=== PATIENT | female | born 1985 | race Caucasian/White ===

== ENCOUNTER 2017-05-24 09:33 | Emergency (ER) | payer MEDICAID, OTHER ==
[~2017-05-24] VITALS: Ht 165.1 cm; Wt 57.6 kg
[2017-05-24] MEDS ORDERED: BENZONATATE 100 MG CAPSULE PO ONE (10:15)
[2017-05-24] MEDS ORDERED: BENZONATATE 100 MG CAPSULE ONE (10:28)
--- NOTE | 2017-05-24 10:52 | NUR ---
PT WAS EVALUATED BY DR CALLAWAY. PT WAS D/C TO HOME. D/C INSTRUCTIONS GIVEN TO THE PT.
[2017-05-24 10:53] VITALS: BP 125/77
== END 2017-05-24 10:54 | disposition home or self-care (01) ==
LOC: ER 09:33
DX: J04.0 Acute laryngitis (principal); J20.9 Acute bronchitis, unspecified; F17.200 Nicotine dependence, unspecified, uncomplicated
CPT/HCPCS: 71010; A4663